=== PATIENT | male | born 1990 | race Asian ===

== ENCOUNTER 2018-01-18 19:35 | Emergency (ER) | payer OTHER ==
[2018-01-18] MEDS ORDERED: Lidocaine 1%* 5 ML VIAL INJ ONE (20:40)
--- NOTE | 2018-01-18 20:48 | ED ---
Laceration/Wound HPI - HPI Summary HPI Summary: 27-year-old male presents with right wrist laceration today. He states he cut it on some glass from a broken glass. He has full range motion of his wrist. Denies any numbness or tingling. He denies any foreign body in the area. He denies any other injury. immunizations are up to date. he is right handed. - History of Current Complaint Stated Complaint: RT WRIST LAC Time Seen by Provider: 01/18/18 20:23 Pain Intensity: 4 - Allergy/Home Medications Allergies/Adverse Reactions: Allergies Allergy/AdvReac Type Severity Reaction Status Date / Time No Known Allergies Allergy Verified 01/18/18 19:40 PMH/Surg Hx/FS Hx/Imm Hx Endocrine/Hematology History: Denies: Hx Anticoagulant Therapy Cardiovascular History: Denies: Hx Hypertension Infectious Disease History: No Infectious Disease History: Denies: Traveled Outside the [place] in Last 30 Days - Family History Known Family History: Positive: Hypertension - Social History Alcohol Use: None Substance Use Type: Reports: None Smoking Status (MU): Never Smoked Tobacco Review of Systems Negative: Fever Negative: Chest Pain Negative: Shortness Of Breath Positive: Other - laceratrion right wrist All Other Systems Reviewed And Are Negative: Yes Physical Exam Triage Information Reviewed: Yes Vital Signs On Initial Exam: Initial Vitals Temp Pulse Resp BP Pulse Ox 98.9 F 78 16 116/70 100 01/18/18 19:40 01/18/18 19:40 01/18/18 19:40 01/18/18 19:40 01/18/18 19:40 Vital Signs Reviewed: Yes Appearance: Positive: Well-Appearing Skin: Positive: Other - 4cm by 1/2cm laceration flap like right wrist Head/Face: Positive: Normal Head/Face Inspection Eyes: Positive: Normal, Conjunctiva Clear Respiratory/Lung Sounds: Positive: Clear to Auscultation, Breath Sounds Present Cardiovascular: Positive: Normal, RRR Musculoskeletal: Positive: Strength/ROM Intact - wrist, Other - good pulses, capillary refill<2 secs Neurological: Positive: Normal Psychiatric: Positive: Normal Procedures - Laceration/Wound Repair 1 Location: Other - right wrist Description: Irregular Anesthesia: Local, 1.0% Length, Depth and Shape: 4cm by 1/2cm flap like Betadine Prep?: Yes Irrigated w/ Saline (ccs): 500 Laceration/Wound Explored: no foreign body removed Closure: Single Layer Suture Type: Prolene - 4-0 Number of Sutures: 6 Layer Closure?: No Sterile Dressing Applied?: Yes - neosporin, telfa, navid Diagnostics - Vital Signs Vital Signs Temp Pulse Resp BP Pulse Ox 01/18/18 19:40 98.9 F 78 16 116/70 100 - Laboratory Lab Statement: Any lab studies that have been ordered have been reviewed, and results considered in the medical decision making process. Laceration Repair Course/Dx - Course Course Of Treatment: 27-year-old male presents with right wrist laceration today. He states he cut it on some glass from a broken glass. He has full range motion of his wrist. Denies any numbness or tingling. He denies any foreign body in the area. He denies any other injury. immunizations are up to date. he is right handed. Neurovascularly intact. full range of motion wrist. Placed 6 suture in 4cm flap like laceration after cleaning. placed navid around area. Patient understands and agrees with plan. - Differential Dx Differental Diagnoses: Abrasion, Avulsion, Laceration - Clinical Impression Provider Diagnoses: Laceration of right wrist Discharge - Discharge Plan Condition: Good Disposition: HOME Patient Education Materials: Care For Your Stitches (ED) Referrals: [facility] - Jaswinder HERNANDEZ [Primary Care Provider] - Additional Instructions: Take Tylenol or ibuprofen for pain Keep area clean and dry for 24 hours Return to ED or primary in 10-14 days to have sutures removed Return to ED if develop signs of infection such as fever, spreading redness, or pus.
[2018-01-18 21:35] VITALS: BP 116/72
== END 2018-01-18 21:33 | disposition home or self-care (01) ==
LOC: ED 19:35
DX: S61.511A Laceration without foreign body of right wrist, initial encounter (principal); W25.XXXA Contact with sharp glass, initial encounter; Y92.9 Unspecified place or not applicable
CPT/HCPCS: 12002; 99282

== ENCOUNTER 2018-07-31 09:44 | Emergency (ER) | payer OTHER ==
--- NOTE | 2018-07-31 10:24 | ED ---
Skin Complaint - HPI Summary HPI Summary: Patient is a 28-year-old male presenting to the ED with chief complaint of maculopapular erythematous round lesions to the hands, macular erythematous specs to the plantar surface of the bilateral feet as well as erythematous with white centers to the mouth. Symptoms have been persistent over the past 2 days. He endorses fever 2 days ago, but denies this currently. He states he is otherwise healthy, takes no medications. 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 He denies any visual changes, abdominal pain, sore throat. - History of Current Complaint Chief Complaint: EDRashSkinAbscess Time Seen by Provider: 07/31/18 09:50 Stated Complaint: RASH Hx Obtained From: Patient Onset/Duration: Started Days Ago Skin Exposure Onset/Duration: Days Ago Timing: Constant Onset Severity: Mild Current Severity: Mild Pain Intensity: 6 Pain Scale Used: 0-10 Numeric Skin Location: Hand, Foot Aggravating Symptom(s): Nothing Alleviating Symptom(s): Nothing Associated Signs & Symptoms: Fever - Allergy/Home Medications Allergies/Adverse Reactions: Allergies Allergy/AdvReac Type Severity Reaction Status Date / Time No Known Allergies Allergy Verified 01/18/18 19:40 Home Medications: Home Medications NK [No Home Medications Reported] 07/31/18 [History Confirmed 07/31/18] PMH/Surg Hx/FS Hx/Imm Hx Previously Healthy: Yes Endocrine/Hematology History: Denies: Hx Anticoagulant Therapy Cardiovascular History: Denies: Hx Hypertension - Immunization History Hx Pertussis Vaccination: No Immunizations Up to Date: Yes Infectious Disease History: No Infectious Disease History: Denies: Traveled Outside the [place] in Last 30 Days - Family History Known Family History: Positive: Hypertension - Social History Occupation: Employed Full-time Lives: Alone Alcohol Use: Rare Hx Substance Use: No Substance Use Type: Reports: None Hx Tobacco Use: No Smoking Status (MU): Never Smoked Tobacco Review of Systems Positive: Fever. Negative: Chills, Fatigue, Skin Diaphoresis Negative: Palpitations, Chest Pain Negative: Shortness Of Breath, Cough Genitourinary: Negative Positive: no symptoms reported, see HPI Positive: Rash - maculopapular erythematous round lesions to the hands, macular erythematous specs to the plantar surface of the bilateral feet as well as erythematous with white centers to the mouth. Neurological: Negative All Other Systems Reviewed And Are Negative: Yes Physical Exam Triage Information Reviewed: Yes Vital Signs On Initial Exam: Initial Vitals Temp Pulse Resp BP Pulse Ox 98.4 F 86 18 126/64 95 07/31/18 09:46 07/31/18 09:46 07/31/18 09:46 07/31/18 09:46 07/31/18 09:46 Vital Signs Reviewed: Yes Appearance: Positive: Well-Appearing, Well-Nourished Skin: Positive: Warm, Skin Color Reflects Adequate Perfusion, Other Head/Face: Positive: Normal Head/Face Inspection Eyes: Positive: EOMI, ARIES, Conjunctiva Clear Neck: Positive: Supple Respiratory/Lung Sounds: Positive: Clear to Auscultation, Breath Sounds Present Cardiovascular: Positive: RRR, Pulses are Symmetrical in both Upper and Lower Extremities Musculoskeletal: Positive: Strength/ROM Intact Neurological: Positive: Sensory/Motor Intact, Alert, Oriented to Person Place, Time, Speech Normal Psychiatric: Positive: Normal, Affect/Mood Appropriate AVPU Assessment: Alert Diagnostics - Vital Signs Vital Signs Temp Pulse Resp BP Pulse Ox 07/31/18 09:46 98.4 F 86 18 126/64 95 - Laboratory Lab Statement: Any lab studies that have been ordered have been reviewed, and results considered in the medical decision making process. Course/Dx - Course Course Of Treatment: Patient is evaluated for lesions to the bilateral hands, bilateral plantar shivers's of the foot as well as the mouth. He is diagnosed with [id number] disease. He is given supportive care and encouraged to wash hands frequently and stay home if fever develops again. - Diagnoses Provider Diagnoses: Hand, foot and mouth disease Discharge - Sign-Out/Discharge Documenting (check all that apply): Patient Departure - Discharge Plan Condition: Stable Disposition: HOME Patient Education Materials: Hand, Foot, and Mouth Disease (ED) Referrals: [facility] - MRJaswinder [Primary Care Provider] - Additional Instructions: Tylenol 650mg and ibuprofen 600mg - use these intermittently every 3 hours. Rest Drink plenty of fluids - Billing Disposition and Condition Condition: STABLE Disposition: Home
[2018-07-31 10:46] VITALS: BP 113/74
== END 2018-07-31 10:40 | disposition home or self-care (01) ==
LOC: ED 09:44
DX: B08.4 Enteroviral vesicular stomatitis with exanthem (principal)
CPT/HCPCS: 99282